=== PATIENT | female | born 1980 | race American Indian/Alaskan Native ===

== ENCOUNTER 2018-12-15 09:59 | Emergency (ER) | payer MEDICAID ==
[2018-12-15 10:09] VITALS: BP 132/91
--- NOTE | 2018-12-15 11:05 | Emergency Department Report ---
ED ENT HPI - General Chief complaint: Earache Stated complaint: SINUS INFECTION Time Seen by Provider: 12/15/18 10:44 Source: patient Mode of arrival: Ambulatory Limitations: No Limitations - History of Present Illness Initial comments: 38 year old female with no significant past medical history presents to the hospital complaining of symptoms of sinus infection progressively worsening 10 days. Patient complain of frontal and maxillary sinus pressure, bilateral ear pain and pressure, nasal congestion, green nasal discharge, and teeth pain and no fever, throat swelling, neck stiffness, or shortness of breath reported. She does have a PMD. - Related Data Previous Rx's Medication Instructions Recorded Last Taken Type Amoxicillin/K Clav Tab [Augmentin 1 tab PO Q12HR #14 tab 12/15/18 Unknown Rx 875 mg] Cetirizine HCl/Pseudoephedrine 1 each PO Q12HR #20 tab.er.12h 12/15/18 Unknown Rx [Zyrtec-D Tablet] Ibuprofen [Motrin] 800 mg PO Q8HR PRN #30 tablet 12/15/18 Unknown Rx Allergies Allergy/AdvReac Type Severity Reaction Status Date / Time No Known Allergies Allergy Verified 12/15/18 10:01 ED Dental HPI - General Chief complaint: Earache Stated complaint: SINUS INFECTION Time Seen by Provider: 12/15/18 10:44 Source: patient Mode of arrival: Ambulatory Limitations: No Limitations - Related Data Previous Rx's Medication Instructions Recorded Last Taken Type Amoxicillin/K Clav Tab [Augmentin 1 tab PO Q12HR #14 tab 12/15/18 Unknown Rx 875 mg] Cetirizine HCl/Pseudoephedrine 1 each PO Q12HR #20 tab.er.12h 12/15/18 Unknown Rx [Zyrtec-D Tablet] Ibuprofen [Motrin] 800 mg PO Q8HR PRN #30 tablet 12/15/18 Unknown Rx Allergies Allergy/AdvReac Type Severity Reaction Status Date / Time No Known Allergies Allergy Verified 12/15/18 10:01 ED Review of Systems ROS: Stated complaint: SINUS INFECTION Other details as noted in HPI Comment: All other systems reviewed and negative ED Past Medical Hx - Past Medical History Previous Medical History?: No - Surgical History Additional Surgical History: BACK - Social History Smoking Status: Current Some Day Smoker Substance Use Type: Alcohol - Medications Home Medications: Home Medications Medication Instructions Recorded Confirmed Last Taken Type Amoxicillin/K Clav Tab [Augmentin 1 tab PO Q12HR #14 tab 12/15/18 Unknown Rx 875 mg] Cetirizine HCl/Pseudoephedrine 1 each PO Q12HR #20 tab.er.12h 12/15/18 Unknown Rx [Zyrtec-D Tablet] Ibuprofen [Motrin] 800 mg PO Q8HR PRN #30 tablet 12/15/18 Unknown Rx ED Physical Exam - General Limitations: No Limitations - Other Other exam information: General: No limitations, patient is alert in no acute distress Head exam: Atraumatic, normocephalic Eyes exam: Normal appearance ENT: Moist mucous membrane, frontal and maxillary sinus tenderness bilaterally. Nasal congestion. Bilateral TMs normal with good light reflex and without erythema Neck exam: Normal inspection, full range of motion, no meningismus nontender Respiratory exam: Clear to auscultation bilateral, no wheezes, rales, crackles Cardiovascular: Normal rate and rhythm, normal heart sounds Abdomen: Soft, nondistended, and nontender, with normal bowel sounds, no rebound, or guarding Extremity: Full range of motion normal inspection no deformity Back: Normal Inspection, full range of motion, no tenderness Neurologic: Alert, oriented x3, cranial nerves intact, no motor or sensory deficit Psychiatric: normal affect, normal mood Skin: Warm, dry, intact ED Course Vital Signs 12/15/18 10:05 Temperature 97.9 F Pulse Rate 84 Respiratory 20 Rate Blood Pressure 132/91 O2 Sat by Pulse 100 Oximetry ED Medical Decision Making - Medical Decision Making Patient is nontoxic appearing and no signs of fever will be discharged with treatment for sinusitis - Differential Diagnosis sinusitis, otitis media, URI Critical Care Time: No Critical care attestation.: If time is entered above; I have spent that time in minutes in the direct care of this critically ill patient, excluding procedure time. ED Disposition Clinical Impression: Sinusitis Disposition: DC-01 TO HOME OR SELFCARE Is pt being admited?: No Does the pt Need Aspirin: No Condition: Stable Instructions: Sinusitis (ED) Additional Instructions: Take the medication as prescribed. Follow up with your doctor or the clinic/doctor provided. Return if symptoms worsen as indicated by your discharge instructions Prescriptions: Amoxicillin/K Clav Tab [Augmentin 875 mg] 1 tab PO Q12HR #14 tab Ibuprofen [Motrin] 800 mg PO Q8HR PRN #30 tablet PRN Reason: Pain , Severe (7-10) Cetirizine HCl/Pseudoephedrine [Zyrtec-D Tablet] 1 each PO Q12HR #20 tab.er.12h Referrals: your, pmd [Other] - 3-5 Days Time of Disposition: 11:05
== END 2018-12-15 11:14 | disposition home or self-care (01) ==
LOC: ED 09:59
DX: J01.00 Acute maxillary sinusitis, unspecified (principal); J01.10 Acute frontal sinusitis, unspecified; H92.03 Otalgia, bilateral; F17.200 Nicotine dependence, unspecified, uncomplicated
CPT/HCPCS: 99282

== ENCOUNTER 2019-01-30 09:04 | Emergency (ER) | payer MEDICAID ==
[2019-01-30 09:42] VITALS: BP 123/78
[2019-01-30] MEDS ORDERED: ROBITUSSIN PO ONE (10:55)
[2019-01-30] MEDS ORDERED: DELTASONE PO ONE (10:55)
--- NOTE | 2019-01-30 10:55 | Emergency Department Report ---
Minor Respiratory - HPI Chief Complaint: Upper Respiratory Infection Stated Complaint: HEADACHE/LFT EYE/SORE THROAT Time Seen by Provider: 01/30/19 10:38 Duration: 3 Days Minor Respiratory: Yes Sore Throat, Yes Able to Tolerate Fluids, Yes Cough, Yes Sick Contacts (kids), No Rhinorrhea, No Ear Pain, No Hemoptysis, No Chest Pain, No Shortness of Breath, No Fever Other History: This is a 38-year-old female presents to ED complaining of cough congestion sore throat for the past 3 days. Patient states that she had a history of bronchitis, ankle. 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 She denies chest pain, shortness of breath ED Review of Systems ROS: Stated complaint: HEADACHE/LFT EYE/SORE THROAT Other details as noted in HPI Comment: All other systems reviewed and negative ED Past Medical Hx - Past Medical History Previous Medical History?: No - Surgical History Past Surgical History?: Yes Additional Surgical History: BACK - Social History Smoking Status: Never Smoker Substance Use Type: None - Medications Home Medications: Home Medications Medication Instructions Recorded Confirmed Last Taken Type Amoxicillin/K Clav Tab [Augmentin 1 tab PO Q12HR #14 tab 12/15/18 Unknown Rx 875 mg] Ibuprofen [Motrin] 800 mg PO Q8HR PRN #30 tablet 12/15/18 Unknown Rx ALBUTEROL Inhaler(NF) [VENTOLIN 1 puff IH PRN #1 inha 01/30/19 Unknown Rx Inhaler(NF)] Cetirizine HCl/Pseudoephedrine 1 each PO Q12HR #20 tab.er.12h 01/30/19 Unknown Rx [Zyrtec-D Tablet] guaiFENesin [Robitussin] 200 mg PO TID #80 ml 01/30/19 Unknown Rx Minor Respiratory Exam - Exam General: Vital signs noted. No distress. Alert and acting appropriately. HEENT: Yes Moist Mucous Membranes, No Pharyngeal Erythema, No Pharyngeal Exudates, No Rhinorrhea, No Conjuctival Injection, No Frontal Tenderness, No Maxillary Tenderness Ear: Neither TM Bulge, Neither TM Erythema, Neither EAC Pain, Neither EAC Discharge Neck: Yes Supple, No Adenopathy Lungs: Yes Good Air Exchange, No Wheezes, No Ronchi, No Stridor, No Cough, No Labored Respirations, No Retractions, No Use of Accessory Muscles, No Other Abnormal Lung Sounds Heart: Yes Regular, No Murmur Abdomen: Yes Normal Bowel Sounds, No Tenderness, No Peritoneal Signs Skin: No Rash, No Edema Neurologic: Alert and oriented, no deficits. Musculoskeletal: Unremarkable. ED Course Vital Signs 01/30/19 09:40 Temperature 98.2 F Pulse Rate 76 Respiratory 19 Rate Blood Pressure 123/78 [Left] O2 Sat by Pulse 100 Oximetry ED Medical Decision Making - Radiology Data Radiology results: report reviewed, image reviewed ROUTINE CHEST, TWO VIEWS: HISTORY: Cough. The trachea, heart, mediastinal contour, lung lloyd and bony thorax are unremarkable. IMPRESSION: Unremarkable chest x-ray. Transcribed By: TTR Dictated By: ROGELIO DAY JR, MD Electronically Authenticated By: ROGELIO DAY JR, MD Signed Date/Time: 01/30/19 1127 - Medical Decision Making 38-year-old female presents with her syndrome/upper respiratory infection Chest x-ray shows no acute findings. Discussed findings with the patient. Discussed the patient to follow up with primary care physician. Vital signs are normal patient is in no acute or respiratory distress. Critical care attestation.: If time is entered above; I have spent that time in minutes in the direct care of this critically ill patient, excluding procedure time. ED Disposition Clinical Impression: URI (upper respiratory infection) Disposition: DC-01 TO HOME OR SELFCARE Is pt being admited?: No Does the pt Need Aspirin: No Condition: Stable Instructions: Viral Syndrome (ED), Upper Respiratory Infection (ED), Acute Bronchitis (ED) Additional Instructions: Make sure to follow up with the primary care physician as discussed. Take all your medications as you've been prescribed. If you have any worsening symptoms or develop new symptoms please return to ED immediately. Prescriptions: guaiFENesin [Robitussin] 200 mg PO TID #80 ml ALBUTEROL Inhaler(NF) [VENTOLIN Inhaler(NF)] 1 puff IH PRN #1 inha Cetirizine HCl/Pseudoephedrine [Zyrtec-D Tablet] 1 each PO Q12HR #20 tab.er.12h Referrals: [facility] [Other] - 3-5 Days Forms: Accompanied Note, Work/School Release Form(ED) Time of Disposition: 12:10
--- NOTE | 2019-01-30 11:31 | XRay Report ---
ROUTINE CHEST, TWO VIEWS: HISTORY: Cough. The trachea, heart, mediastinal contour, lung lloyd and bony thorax are unremarkable. IMPRESSION: Unremarkable chest x-ray.
== END 2019-01-30 12:23 | disposition home or self-care (01) ==
LOC: ED 09:04
DX: J06.9 Acute upper respiratory infection, unspecified (principal)
CPT/HCPCS: 71046; 99283; J7512

== ENCOUNTER 2019-03-05 01:26 | Emergency (ER) | payer MEDICAID ==
[2019-03-05 01:32] VITALS: BP 140/84
[2019-03-05 02:17] LABS: Basophils # (Auto) 0.1 K/mm3 (0.0-0.1); Eosinophils # (Auto) 0.1 K/mm3 (0.0-0.4); Eosinophils % (Auto) 2.6 % (0.0-4.3); Hematocrit 33.2 % (30.3-42.9); Lymphocytes # (Auto) 1.4 K/mm3 (1.2-5.4); Mean Corpuscular HGB Conc 33 % (30-34); Mean Corpuscular Volume 78 fl (79-97); Monocytes # (Auto) 0.3 K/mm3 (0.0-0.8); Monocytes % (Auto) 5.8 % (0.0-7.3); Platelet Count 293 K/mm3 (140-440); Red Blood Count 4.27 M/mm3 (3.65-5.03); Red Cell Distribution Width 16.3 % (13.2-15.2)
[2019-03-05 02:26] LABS: BUN/Creatinine Ratio 14; Blood Urea Nitrogen 10 mg/dL (7-17); Calcium 8.8 mg/dL (8.4-10.2); Hemolysis Index 21
--- NOTE | 2019-03-05 03:28 | Emergency Department Report ---
ED GI Bleed HPI - General Chief complaint: GI Bleed Stated complaint: ANAL BLEEDING Time Seen by Provider: 03/05/19 03:00 Source: patient Mode of arrival: Ambulatory Limitations: No Limitations - History of Present Illness Initial comments: 39-year-old female with no significant past medical history presents to the hospital complaining of rectal bleeding when off for several months. Patient states sometimes she sees blood after a bowel movement at the time was it occurs in her underwear without a bowel movement. Patient does think she has hemorrho ids. She denies rectal pain, abdominal pain, nausea, vomiting, or fever. Today she was concerned because she had 2 loose stools that had more blood mixed with stool. - Related Data Previous Rx's Medication Instructions Recorded Last Taken Type Amoxicillin/K Clav Tab [Augmentin 1 tab PO Q12HR #14 tab 12/15/18 Unknown Rx 875 mg] Ibuprofen [Motrin] 800 mg PO Q8HR PRN #30 tablet 12/15/18 Unknown Rx ALBUTEROL Inhaler(NF) [VENTOLIN 1 puff IH PRN #1 inha 01/30/19 Unknown Rx Inhaler(NF)] Cetirizine HCl/Pseudoephedrine 1 each PO Q12HR #20 tab.er.12h 01/30/19 Unknown Rx [Zyrtec-D Tablet] guaiFENesin [Robitussin] 200 mg PO TID #80 ml 01/30/19 Unknown Rx Phenylephrine HCl/Prosser Butter 1 each RC QID PRN #20 supp.rect 03/05/19 Unknown Rx [Preparation H Suppository] Allergies Allergy/AdvReac Type Severity Reaction Status Date / Time No Known Allergies Allergy Verified 12/15/18 10:01 ED Review of Systems ROS: Stated complaint: ANAL BLEEDING Other details as noted in HPI Comment: All other systems reviewed and negative ED Past Medical Hx - Past Medical History Previous Medical History?: No - Surgical History Past Surgical History?: Yes Additional Surgical History: BACK - Social History Smoking Status: Current Some Day Smoker - Medications Home Medications: Home Medications Medication Instructions Recorded Confirmed Last Taken Type Amoxicillin/K Clav Tab [Augmentin 1 tab PO Q12HR #14 tab 12/15/18 Unknown Rx 875 mg] Ibuprofen [Motrin] 800 mg PO Q8HR PRN #30 tablet 12/15/18 Unknown Rx ALBUTEROL Inhaler(NF) [VENTOLIN 1 puff IH PRN #1 inha 01/30/19 Unknown Rx Inhaler(NF)] Cetirizine HCl/Pseudoephedrine 1 each PO Q12HR #20 tab.er.12h 01/30/19 Unknown Rx [Zyrtec-D Tablet] guaiFENesin [Robitussin] 200 mg PO TID #80 ml 01/30/19 Unknown Rx Phenylephrine HCl/Prosser Butter 1 each RC QID PRN #20 supp.rect 03/05/19 Unknown Rx [Preparation H Suppository] ED Physical Exam - General Limitations: No Limitations - Other Other exam information: General: No limitations, patient is alert in no acute distress Head exam: Atraumatic, normocephalic Eyes exam: Normal appearance, pupils equal reactive to light, extraocular movements intact ENT: Moist mucous membrane, normal oropharynx Neck exam: Normal inspection, full range of motion, no meningismus nontender Respiratory exam: Clear to auscultation bilateral, no wheezes, rales, crackles Cardiovascular: Normal rate and rhythm, normal heart sounds Abdomen: Soft, nondistended, and nontender, with normal bowel sounds, no rebound, or guarding Rectal: Some mild hemorrhoids without signs of active bleeding. Rectal exam, no stool obtained, a small amount of red blood was obtained that was guaiac positive. No melena Extremity: Full range of motion normal inspection no deformity Back: Normal Inspection, full range of motion, no tenderness Neurologic: Alert, oriented x3, cranial nerves intact, no motor or sensory deficit Psychiatric: normal affect, normal mood Skin: Warm, dry, intact ED Course Vital Signs 03/05/19 03/05/19 03/05/19 01:30 01:46 03:18 Temperature 97.9 F 97.9 F Pulse Rate 94 H 90 Respiratory 18 18 18 Rate Blood Pressure 140/84 140/84 O2 Sat by Pulse 98 99 100 Oximetry ED Medical Decision Making - Lab Data Result diagrams: 03/05/19 01:59 03/05/19 01:59 Lab Results 03/05/19 03/05/19 03/05/19 Range/Units 01:59 01:59 03:05 WBC 5.2 (4.5-11.0) K/mm3 RBC 4.27 (3.65-5.03) M/mm3 Hgb 11.0 (10.1-14.3) gm/dl Hct 33.2 (30.3-42.9) % MCV 78 L (79-97) fl MCH 26 L (28-32) pg MCHC 33 (30-34) % RDW 16.3 H (13.2-15.2) % Plt Count 293 (140-440) K/mm3 Lymph % (Auto) 28.0 (13.4-35.0) % Powell % (Auto) 5.8 (0.0-7.3) % Eos % (Auto) 2.6 (0.0-4.3) % Baso % (Auto) 1.0 (0.0-1.8) % Lymph # 1.4 (1.2-5.4) K/mm3 Powell # 0.3 (0.0-0.8) K/mm3 Eos # 0.1 (0.0-0.4) K/mm3 Baso # 0.1 (0.0-0.1) K/mm3 Seg Neutrophils % 62.6 (40.0-70.0) % Seg Neutrophils # 3.2 (1.8-7.7) K/mm3 Sodium 142 (137-145) mmol/L Potassium 3.9 (3.6-5.0) mmol/L Chloride 108.3 H (98-107) mmol/L Carbon Dioxide 21 L (22-30) mmol/L Anion Gap 17 mmol/L BUN 10 (7-17) mg/dL Creatinine 0.7 (0.7-1.2) mg/dL Estimated GFR > 60 ml/min BUN/Creatinine Ratio 14 % Glucose 99 (65-100) mg/dL Calcium 8.8 (8.4-10.2) mg/dL Urine Color Yellow (Yellow) Urine Turbidity Clear (Clear) Urine pH 5.0 (5.0-7.0) Ur Specific Orange 1.012 (1.003-1.030) Urine Protein <15 mg/dl (Negative) mg/dL Urine Glucose (UA) Neg (Negative) mg/dL Urine Ketones Neg (Negative) mg/dL Urine Blood Sm (Negative) Urine Nitrite Neg (Negative) Ur Reducing Substances Not Reportable Urine Bilirubin Neg (Negative) Urine Ictotest Not Reportable Urine Urobilinogen < 2.0 (<2.0) mg/dL Ur Leukocyte Esterase Neg (Negative) Urine WBC (Auto) < 1.0 (0.0-6.0) /HPF Urine RBC (Auto) < 1.0 (0.0-6.0) /HPF U Epithel Cells (Auto) 1.0 (0-13.0) /HPF Urine Mucus Few /HPF Urine HCG, Qual Negative (Negative) - Radiology Data Radiology results: report reviewed ct abd/pelvis IV contrast: naf - Medical Decision Making CT abdomen and pelvis does not reveal any acute findings. H&H is normal. Edith ent will be treated for hemorrhoids and follow-up with GI advised - Differential Diagnosis diverticulosis, hemorrhoids, anal fissure, inflammatory bowel disease Critical Care Time: No Critical care attestation.: If time is entered above; I have spent that time in minutes in the direct care of this critically ill patient, excluding procedure time. ED Disposition Clinical Impression: Rectal bleeding, Hemorrhoid Disposition: DC-01 TO HOME OR SELFCARE Is pt being admited?: No Does the pt Need Aspirin: No Condition: Stable Instructions: Rectal Bleeding (ED), Hemorrhoids (ED) Additional Instructions: Take the medication as prescribed. Follow up with your doctor or the clinic/doctor provided. Return if symptoms worsen as indicated by your discharge instructions Prescriptions: Phenylephrine HCl/Prosser Butter [Preparation H Suppository] 1 each RC QID PRN #20 supp.rect PRN Reason: Hemorrhoids Referrals: [facility] [Provider Group] - 2-3 Days ROB ANTHONY MD [Primary Care Provider] - 3-5 Days Forms: Accompanied Note Time of Disposition: 05:31
[2019-03-05 03:50] LABS: HCG Qualitative,Urine Negative (Negative)
[2019-03-05 03:55] LABS: Bilirubin,Urine NEG (Negative); Blood,Urine SM (Negative); Color,Urine Yellow (Yellow); Mucus,Urine FEW /HPF; Protein,Urine <15 mg/dL mg/dL (Negative); Urobilinogen,Urine < 2.0 mg/dL (<2.0); WBC,Urine < 1.0 /HPF (0.0-6.0)
[2019-03-05 03:57] LABS: RBC,Urine < 1.0 /HPF (0.0-6.0)
--- NOTE | 2019-03-05 04:51 | Cat Scan Report ---
PROCEDURE: CT ABDOMEN PELVIS W CON TECHNIQUE: Computerized axial tomography of the abdomen and pelvis was performed in arterial and del ayed phases after the IV injection of iodinated nonionic contrast. HISTORY: rectal bleeding COMPARISONS: None . FINDINGS: Partially visualized intrathoracic contents are unremarkable. The liver, gallbladder, pancreas, spleen, and adrenal glands are unremarkable. Kidneys show no worrisome lesions, hydronephrosis, or calculi. Urinary bladder is unremarkable. Antev erted uterus. No free fluid in the pelvis. Small and large bowel are normal in caliber. No rectal wall thickening or perirectal stranding or dana ma. Appendix is normal. No free air, free fluid, or lymphadenopathy identified. Aorta is normal in course and caliber. Superficial soft tissues are unremarkable. No acute or aggressive appearing skeletal findings. IMPRESSION: No acute findings in the abdomen or pelvis. Specifically, no fluid or contrast are seen within the arben men of the colon/rectum, and there is no visualized rectal wall thickening or perirectal inflammatory findings. Consider gastroenterology follow-up as warranted. This document is electronically signed by Riki Mcintyre MD., March 05 2019 05:49:18 AM ET
== END 2019-03-05 05:50 | disposition home or self-care (01) ==
LOC: ED 01:26
DX: K64.9 Unspecified hemorrhoids (principal); F17.200 Nicotine dependence, unspecified, uncomplicated; Z79.899 Other long term (current) drug therapy
CPT/HCPCS: 36415; 74177; 80048; 81001; 81025; 82271; 85025; 99284; Q9967

== ENCOUNTER 2019-09-17 07:27 | Emergency (ER) | payer SELFPAY ==
[2019-09-17 07:38] VITALS: BP 128/77
[2019-09-17] MEDS ORDERED: ONDANSETRON 4 MG/2 ML INJ IV ONE (08:20)
[2019-09-17] MEDS ORDERED: FAMOTIDINE 20 MG/2 ML INJ IV ONE (08:20)
[2019-09-17] MEDS ORDERED: SODIUM CHLORIDE 0.9% 1000 ML 1,000 ML IV ONE (08:20)
[2019-09-17] MEDS ORDERED: DICYCLOMINE 20 MG TAB PO ONE (08:20)
--- NOTE | 2019-09-17 08:34 | Emergency Department Report ---
ED N/V/D HPI - General Chief complaint: Nausea/Vomiting/Diarrhea Stated complaint: STOMACH VIRUS Time Seen by Provider: 09/17/19 07:46 Source: patient Mode of arrival: Ambulatory Limitations: No Limitations - History of Present Illness Initial comments: This is a 39-year-old female nontoxic, well nourished in appearance, no acute signs of distress presents to the ED with c/o of nausea and vomiting 2 days. Patient describes vomiting as food content. Patient denies any abdominal pain, chest pain, short of breath, fever, chills, headache, stiff neck, numbness or tingling. Patient denies any diarrhea or constipation. Patient denies any recent travels. Patient denies any drug allergies significant past medical history. MD complaint: nausea, vomiting -: days(s) (2) Description of Vomiting: food contents Associated Abdominal Pain: No Radiation: none Pain Scale: 0 Improves with: none Worsens with: none Associated Symptoms: nausea/vomiting. denies: myalgias, chest pain, cough, diaphoresis, fever/chills, headaches, loss of appetite, malaise, rash, dysuria, shortness of breath, syncope, weakness - Related Data Previous Rx's Medication Instructions Recorded Last Taken Type Amoxicillin/K Clav Tab [Augmentin 1 tab PO Q12HR #14 tab 12/15/18 Unknown Rx 875 mg] Ibuprofen [Motrin] 800 mg PO Q8HR PRN #30 tablet 12/15/18 Unknown Rx ALBUTEROL Inhaler(NF) [VENTOLIN 1 puff IH PRN #1 inha 01/30/19 Unknown Rx Inhaler(NF)] Cetirizine HCl/Pseudoephedrine 1 each PO Q12HR #20 tab.er.12h 01/30/19 Unknown Rx [Zyrtec-D Tablet] guaiFENesin [Robitussin] 200 mg PO TID #80 ml 01/30/19 Unknown Rx Phenylephrine HCl/Cranfills Gap Butter 1 each RC QID PRN #20 supp.rect 03/05/19 Unknown Rx [Preparation H Suppository] Ondansetron [Zofran Odt] 4 mg PO Q8HR PRN #20 tab.rapdis 09/17/19 Unknown Rx Allergies Allergy/AdvReac Type Severity Reaction Status Date / Time No Known Allergies Allergy Verified 12/15/18 10:01 ED Review of Systems ROS: Stated complaint: STOMACH VIRUS Other details as noted in HPI Constitutional: denies: chills, fever Eyes: denies: eye pain, eye discharge, vision change ENT: denies: ear pain, throat pain Respiratory: denies: cough, shortness of breath, wheezing Cardiovascular: denies: chest pain, palpitations Endocrine: no symptoms reported Gastrointestinal: nausea, vomiting. denies: abdominal pain, diarrhea Genitourinary: denies: urgency, dysuria, discharge Musculoskeletal: denies: back pain, joint swelling, arthralgia Skin: denies: rash, lesions Neurological: denies: headache, weakness, paresthesias Psychiatric: denies: anxiety, depression Hematological/Lymphatic: denies: easy bleeding, easy bruising ED Past Medical Hx - Past Medical History Previous Medical History?: No - Surgical History Past Surgical History?: Yes Additional Surgical History: BACK - Social History Smoking Status: Current Every Day Smoker Substance Use Type: None - Medications Home Medications: Home Medications Medication Instructions Recorded Confirmed Last Taken Type Amoxicillin/K Clav Tab [Augmentin 1 tab PO Q12HR #14 tab 12/15/18 Unknown Rx 875 mg] Ibuprofen [Motrin] 800 mg PO Q8HR PRN #30 tablet 12/15/18 Unknown Rx ALBUTEROL Inhaler(NF) [VENTOLIN 1 puff IH PRN #1 inha 01/30/19 Unknown Rx Inhaler(NF)] Cetirizine HCl/Pseudoephedrine 1 each PO Q12HR #20 tab.er.12h 01/30/19 Unknown Rx [Zyrtec-D Tablet] guaiFENesin [Robitussin] 200 mg PO TID #80 ml 01/30/19 Unknown Rx Phenylephrine HCl/Cranfills Gap Butter 1 each RC QID PRN #20 supp.rect 03/05/19 Unknown Rx [Preparation H Suppository] Ondansetron [Zofran Odt] 4 mg PO Q8HR PRN #20 tab.rapdis 09/17/19 Unknown Rx ED Physical Exam - General Limitations: No Limitations General appearance: alert, in no apparent distress - Head Head exam: Present: atraumatic, normocephalic - Neck Neck exam: Present: normal inspection, full ROM. Absent: tenderness, meningismus, lymphadenopathy - Respiratory Respiratory exam: Present: normal lung sounds bilaterally. Absent: respiratory distress, wheezes, rales, rhonchi, stridor, chest wall tenderness, accessory muscle use, decreased breath sounds, prolonged expiratory - Cardiovascular Cardiovascular Exam: Present: regular rate, normal rhythm, normal heart sounds. Absent: bradycardia, tachycardia, irregular rhythm, systolic murmur, diastolic murmur, rubs, gallop - GI/Abdominal GI/Abdominal exam: Present: soft, normal bowel sounds. Absent: distended, tenderness, guarding, rebound, rigid, diminished bowel sounds - Extremities Exam Extremities exam: Present: normal inspection, full ROM - Back Exam Back exam: Present: normal inspection, full ROM. Absent: tenderness, CVA tenderness (R), CVA tenderness (L), muscle spasm, paraspinal tenderness, vertebral tenderness, rash noted - Neurological Exam Neurological exam: Present: alert, oriented X3, normal gait - Psychiatric Psychiatric exam: Present: normal affect, normal mood - Skin Skin exam: Present: warm, dry, intact, normal color. Absent: rash ED Course Vital Signs 09/17/19 07:36 Temperature 98.3 F Pulse Rate 75 Respiratory 16 Rate Blood Pressure 128/77 O2 Sat by Pulse 100 Oximetry - Reevaluation(s) Reevaluation #1: 09/17/19 08:35 Patient is speaking in full sentences with no signs of distress noted. ED Medical Decision Making - Lab Data Result diagrams: 09/17/19 08:26 09/17/19 08:26 - Medical Decision Making This is a 39-year-old female that presents with nausea and vomiting. Patient is stable and was examined by me. There is no abdominal tenderness. Negative signs of symptoms of appendicitis, cholecystitis or acute abdomen. Labs obtained. UA obtained. Xr abdomen/chest xray obtained and dictated by the radiologist. Patient is notified of the report with no questions noted by the patient. Vital signs are stable prior to discharge. Patient received Zofran and 1L Normal saline in the ED which patient stated symptoms has resovled and subsided. A by mouth challenge has been obtained and patient tolerated well with no nausea vomiting. Patient was also instructed to Follow-up with a primary care doctor in 3-5 days or if symptoms worsen and continue return to emergency room as soon as possible. At time of discharge, the patient does not seem toxic or ill in appearance. No acute signs of distress noted. Patient agrees to discharge treatment plan of care. No further questions noted by the patient. Critical care attestation.: If time is entered above; I have spent that time in minutes in the direct care of this critically ill patient, excluding procedure time. ED Disposition Clinical Impression: Nausea & vomiting Qualifiers: Vomiting type: unspecified Vomiting Intractability: non-intractable Qualified Code(s): R11.2 - Nausea with vomiting, unspecified Disposition: - TO HOME OR SELFCARE Is pt being admited?: No Does the pt Need Aspirin: No Condition: Stable Instructions: Acute Nausea and Vomiting (ED) Additional Instructions: Follow-up with a primary care doctor in 3-5 days or if symptoms worsen and continue return to emergency room as soon as possible. Prescriptions: Ondansetron [Zofran Odt] 4 mg PO Q8HR PRN #20 tab.rapdis PRN Reason: Nausea Referrals: PRIMARY CAREMD [Primary Care Provider] - 3-5 Days ROB ANTHONY MD [Staff Physician] - 3-5 Days [facility] [Outside] - 3-5 Days Forms: Work/School Release Form(ED)
[2019-09-17 08:55] LABS: Basophils # (Auto) 0.1 K/mm3 (0.0-0.1); Basophils % (Auto) 1.4 % (0.0-1.8); Eosinophils # (Auto) 0.1 K/mm3 (0.0-0.4); Eosinophils % (Auto) 1.9 % (0.0-4.3); Lymphocytes # (Auto) 1.6 K/mm3 (1.2-5.4); Mean Corpuscular HGB Conc 33 % (30-34); Mean Corpuscular Volume 80 fl (79-97); Monocytes # (Auto) 0.3 K/mm3 (0.0-0.8); Monocytes % (Auto) 8.3 % (0.0-7.3); Platelet Count 303 K/mm3 (140-440); Red Cell Distribution Width 17.2 % (13.2-15.2)
[2019-09-17 09:17] LABS: Alanine Aminotransferase 15 units/L (7-56); Albumin 4.4 g/dL (3.9-5); BUN/Creatinine Ratio 15; Blood Urea Nitrogen 9 mg/dL (7-17); Calcium 9.1 mg/dL (8.4-10.2); Hemolysis Index 16
--- NOTE | 2019-09-17 09:39 | XRay Report ---
ACUTE ABDOMEN SERIES INDICATION / CLINICAL INFORMATION: n/v. COMPARISON: None available. FINDINGS: Nonspecific bowel gas pattern. No definite evidence of obstruction or pneumoperitoneum. The accompany ing chest x-ray shows no acute disease. Signer Name: Jeremie Go MD FACR Signed: 09/17/2019 9:35 AM Workstation Name: [id number]
== END 2019-09-17 10:07 | disposition home or self-care (01) ==
LOC: ED 07:27
DX: R11.2 Nausea with vomiting, unspecified (principal)
CPT/HCPCS: 36415; 74022; 80053; 83690; 84703; 85025; 96361; 96374; 96375; 99284; J2405; J7030